=== PATIENT | male | born 1925 | race Caucasian/White ===

== ENCOUNTER 2016-06-08 15:08 | Inpatient (IN) | payer OTHER ==
[~2016-06-08] VITALS: Ht 175.3 cm; Wt 75.7 kg
[2016-06-08 18:08] LABS: HEMATOCRIT 38.9 % (38.0-50.0); MCH 30.2 PG (29.0-34.0); MCHC 33.2 G/DL (30.0-36.0); MCV 91.1 FL (86-99); MEAN PLAT.VOLUME 9.2 uM^3 (9.0-12.4); PLATELET COUNT 147 K/uL (156-360); RBC DIS.WIDTH-CV 12.9 % (11.8-14.6); RBC DIS.WIDTH-SD 42.2 % (39-53); RED BLOOD COUNT 4.27 M/uL (4.00-5.50); WHITE BLOOD COUNT 11.8 K/uL (4.1-10.2)
[2016-06-08 18:20] LABS: CHLORIDE 105 mEq/L (99-109); POTASSIUM 3.6 mEq/L (3.7-5.4); SODIUM 141 mEq/L (136-147)
[2016-06-08 18:22] LABS: GLUCOSE 83 mg/dL (70-99)
[2016-06-08 18:23] LABS: ANION GAP 10 MEQ/L (2-14)
[2016-06-08 18:26] LABS: GFR ESTIMATE (CALCULATED) > 59 mL/min/
[2016-06-08 18:27] LABS: UREA NITROGEN (BUN) 18 mg/dL (9-23)
[2016-06-08 19:15] LABS: ADD MIUA? YES; BILIRUBIN NEGATIVE; BLOOD MODERATE; GLUCOSE (STRIP) NEGATIVE; KETONES NEGATIVE; LEUKOCYTES TRACE; NITRITE NEGATIVE; PROTEIN (STRIP) 100; SPECIFIC GRAVITY 1.013 (1.000-1.030); UROBILINOGEN 0.2 MG/DL (0.2-1.0)
[2016-06-08 19:17] LABS: COLOR RED ((YELLOW))
[2016-06-08 19:21] LABS: BACTERIA NONE SEEN /HPF; CASTS NONE SEEN /LPF; CRYSTALS NONE SEEN; EPITHELIAL CELLS NONE SEEN /HPF; MUCUS NONE SEEN /LPF; RED BLOOD CELLS TNTC /HPF (0-5); UCUL ADDED? NO; WHITE BLOOD CELLS 0-5 /HPF (0-5)
[2016-06-08] MEDS ORDERED: NEURONTIN300 MG PO (22:23)
[2016-06-08] MEDS ORDERED: OMEPRAZOLE20 MG PO (22:24)
[2016-06-08] MEDS ORDERED: PRESERVISION A1 EAC2 PO (22:25)
[2016-06-08] MEDS ORDERED: ARTIFICIAL TEAR15 M1 BOTH EYES (22:26)
[2016-06-08] MEDS ORDERED: EXTRA STRENGTH500 M1 PO (22:27)
[2016-06-08] MEDS ORDERED: TRAMADOL HCL50 MG PO (22:28)
[2016-06-08] MEDS ORDERED: GERI-HYDROLAC140 GM TP (22:29)
[2016-06-08] MEDS ORDERED: FLONASE16 G1 BOTH NARES (22:30)
[2016-06-08] MEDS ORDERED: ASPIRIN81 M2 PO (22:30)
[2016-06-08] MEDS ORDERED: LUBRICANT EYE3.5 G2 BOTH EYES (22:31)
[2016-06-09 00:51] VITALS: BP 119/54
[2016-06-09 05:44] VITALS: BP 145/72
[2016-06-09 06:13] LABS: HEMATOCRIT 33.4 % (38.0-50.0); MCH 30.2 PG (29.0-34.0); MCHC 32.6 G/DL (30.0-36.0); MCV 92.5 FL (86-99); MEAN PLAT.VOLUME 9.6 uM^3 (9.0-12.4); PLATELET COUNT 129 K/uL (156-360); RBC DIS.WIDTH-CV 13.4 % (11.8-14.6); RBC DIS.WIDTH-SD 45.3 % (39-53); RED BLOOD COUNT 3.61 M/uL (4.00-5.50); WHITE BLOOD COUNT 14.9 K/uL (4.1-10.2)
[2016-06-09 06:15] LABS: ANION GAP 9 MEQ/L (2-14); CHLORIDE 108 MEQ/L (99-109); GFR ESTIMATE (CALCULATED) 55 mL/min/; GLUCOSE 74 mg/dL (70-99); POTASSIUM 3.6 MEQ/L (3.7-5.4); SAMPLE HEMOLYSIS CHECK 0; SAMPLE ICTERIC CHECK 0; SAMPLE LIPEMIA CHECK 0; SODIUM 141 MEQ/L (136-147); UREA NITROGEN (BUN) 16 mg/dL (9-23)
[2016-06-09 08:15] VITALS: BP 101/49
[2016-06-09 12:28] VITALS: BP 123/56
[2016-06-09 15:52] VITALS: BP 119/56
[2016-06-09 19:48] VITALS: BP 112/53
[2016-06-10] VITALS (7 sets, daily range): BP systolic 118–171; BP diastolic 55–76
[2016-06-10 06:10] LABS: EOSINOPHIL (%) 0.5 % (0-5); EOSINOPHIL COUNT 0.1 K/uL (0-0.3); HEMATOCRIT 33.2 % (38.0-50.0); IMMATURE GRANULOCYTE (%) 0.5 % (0.0-0.7); IMMATURE GRANULOCYTE COUNT 0.1 K/uL; INSTRUMENT ABS NEUTROPHIL CT 8.5 K/uL; MCH 30.1 PG (29.0-34.0); MCHC 31.9 G/DL (30.0-36.0); MCV 94.3 FL (86-99); MONOCYTE (%) 11.8 % (3-12); MONOCYTE COUNT 1.3 K/uL (0-0.8); NEUTROPHIL (%) 77.5 % (45-76); NEUTROPHIL COUNT 8.5 K/uL (1.8-6.4); PLATELET COUNT 96 K/uL (156-360); RBC DIS.WIDTH-CV 13.9 % (11.8-14.6); RBC DIS.WIDTH-SD 47.8 % (39-53); RED BLOOD COUNT 3.52 M/uL (4.00-5.50); WHITE BLOOD COUNT 10.9 K/uL (4.1-10.2)
[2016-06-10 06:27] LABS: ANION GAP 8 MEQ/L (2-14); CHLORIDE 109 MEQ/L (99-109); GFR ESTIMATE (CALCULATED) 47 mL/min/; GLUCOSE 82 mg/dL (70-99); POTASSIUM 3.9 MEQ/L (3.7-5.4); SAMPLE HEMOLYSIS CHECK 0; SAMPLE ICTERIC CHECK 0; SAMPLE LIPEMIA CHECK 0; SODIUM 142 MEQ/L (136-147); UREA NITROGEN (BUN) 20 mg/dL (9-23)
[2016-06-11 03:50] VITALS: BP 156/69
[2016-06-11 05:34] LABS: EOSINOPHIL (%) 1.8 % (0-5); EOSINOPHIL COUNT 0.2 K/uL (0-0.3); HEMATOCRIT 32.2 % (38.0-50.0); IMMATURE GRANULOCYTE (%) 0.8 % (0.0-0.7); IMMATURE GRANULOCYTE COUNT 0.1 K/uL; INSTRUMENT ABS NEUTROPHIL CT 7.9 K/uL; LYMPHOCYTE COUNT 1.1 K/uL (1.0-2.8); MCH 29.8 PG (29.0-34.0); MCHC 32.3 G/DL (30.0-36.0); MCV 92.3 FL (86-99); MEAN PLAT.VOLUME 10.1 uM^3 (9.0-12.4); MONOCYTE (%) 11.4 % (3-12); MONOCYTE COUNT 1.2 K/uL (0-0.8); NEUTROPHIL (%) 75.2 % (45-76); NEUTROPHIL COUNT 7.9 K/uL (1.8-6.4); PLATELET COUNT 98 K/uL (156-360); RBC DIS.WIDTH-CV 13.4 % (11.8-14.6); RBC DIS.WIDTH-SD 45.1 % (39-53); RED BLOOD COUNT 3.49 M/uL (4.00-5.50); WHITE BLOOD COUNT 10.5 K/uL (4.1-10.2)
[2016-06-11 05:59] LABS: ANION GAP 8 MEQ/L (2-14); CHLORIDE 107 MEQ/L (99-109); GFR ESTIMATE (CALCULATED) > 59 mL/min/; GLUCOSE 77 mg/dL (70-99); POTASSIUM 3.6 MEQ/L (3.7-5.4); SAMPLE HEMOLYSIS CHECK 0; SAMPLE ICTERIC CHECK 0; SAMPLE LIPEMIA CHECK 0; SODIUM 139 MEQ/L (136-147); UREA NITROGEN (BUN) 16 mg/dL (9-23)
[2016-06-11 08:58] VITALS: BP 158/70
[2016-06-11 11:56] VITALS: BP 141/63
[2016-06-11 15:20] VITALS: BP 145/65
[2016-06-11 19:55] VITALS: BP 174/76
== END 2016-06-11 20:46 | disposition short-term general hospital (02) | DRG 698 ==
LOC: EME 15:08 → EDOF 21:59 → 3EAST 21:59
PROVIDERS: Emergency Medicine; Internal Medicine; Student in an Organized Health Care Education/Training Program
DX: T83.511A Infection and inflammatory reaction due to indwelling urethral catheter, initial encounter (principal); A41.51 Sepsis due to Escherichia coli [E. coli]; N39.0 Urinary tract infection, site not specified; N17.9 Acute kidney failure, unspecified; E87.6 Hypokalemia; K21.9 Gastro-esophageal reflux disease without esophagitis; N31.9 Neuromuscular dysfunction of bladder, unspecified; Z93.3 Colostomy status; D64.9 Anemia, unspecified; I95.9 Hypotension, unspecified; Y84.6 Urinary catheterization as the cause of abnormal reaction of the patient, or of later complication, without mention of misadventure at the time of the procedure
CPT/HCPCS: 71020; 76770; 80048; 81003; 83605; 85025; 85027; 87040; 87077; 87086; 87186; 87801; 99281; 99285; J0690; J2543; J7030; J7050; J7120; S0028